=== PATIENT | male | born 1935 | race Caucasian/White ===

== ENCOUNTER 2017-07-14 11:25 | Emergency (ER) | payer OTHER ==
[~2017-07-14] VITALS: Ht 172.7 cm; Wt 77.0 kg
[2017-07-14 11:39] VITALS: Ht 172.7 cm; Wt 77.0 kg
[2017-07-14] MEDS ORDERED: CEFEPIME 2GM/50 ML (PMX) 50 ML IVPB STA (12:03)
[2017-07-14] MEDS ORDERED: VANCOMYCIN 1 GM (PMX) 250 ML IVPB ONE (12:30)
[2017-07-14 12:38] LABS: BASOPHIL # 0.1 10^3/ul (0.0-0.1); BASOPHILS % 0.4 % (0.0-2.0); EOSINOPHILS # 0.1 10^3/ul (0.0-0.5); EOSINOPHILS % 0.5 % (0.0-7.0); HEMATOCRIT 31.7 % (42.0-52.0); HEMOGLOBIN 10.3 g/dl (14.0-18.0); LYMPHOCYTES # 1.3 10^3/ul (0.8-2.9); MEAN CORPUSCULAR HGB CONC 32.5 g/dl (32.0-37.0); MEAN CORPUSCULAR VOLUME 92.4 fl (82.0-101.0); MEAN PLATELET VOLUME 9.2 fl (7.4-10.4); MONOCYTES % 6.1 % (0.0-11.0); NEUTROPHIL # 13.4 10^3/ul (1.6-7.5); NEUTROPHILS % 83.3 % (39.0-77.0); PLATELET COUNT 284 10^3/UL (140-415); RED BLOOD COUNT 3.43 10^6/ul (4.70-6.10); RED CELL DISTRIBUTION WIDTH 13.6 % (11.5-14.5); WHITE BLOOD COUNT 16.2 10^3/ul (4.8-10.8)
[2017-07-14 12:56] LABS: INR 1.09; PARTIAL THROMBOPLASTIN TIME 30.5 Sec (25.0-35.0); PROTIME 14.1 Sec (12.2-14.2); PT RATIO 1.1
[2017-07-14 12:59] LABS: ALBUMIN 3.5 g/dl (3.3-4.9); ALBUMIN/GLOBULIN RATIO 0.89; BILIRUBIN,INDIRECT 0.1 mg/dl (0-1.1); BILIRUBIN,TOTAL 0.1 mg/dl (0.2-1.3); CALCIUM 9.7 mg/dl (8.4-10.2); CREATININE 1.75 mg/dl (0.61-1.24); POTASSIUM 4.3 mmol/L (3.5-5.1); TOTAL PROTEIN 7.4 g/dl (6.1-8.1)
[2017-07-14] MEDS ORDERED: GLIP-95 PO (13:16)
[2017-07-14] MEDS ORDERED: TRAM-40 PO (13:16)
[2017-07-14] MEDS ORDERED: MTF1000T PO (13:17)
[2017-07-14] MEDS ORDERED: AMLO5TAB4 PO (13:18)
--- NOTE | 2017-07-14 13:44 | ERD ---
ER Documentation Chief Complaint Chief Complaint PT BIB RA 89 from [facility] for L foot pain, swelling, and erythema X 1 week. HPI This is an 82-year-old diabetic with a history of r left great toe amputations complaining of right foot infection over the past week. The patient says he has had some redness and swelling over the past week but no fever he says he has minimal pain. Patient says he says some discharge in the foot as well. He was [facility] by [facility] for evaluation and infection ROS All systems reviewed and are negative except as per history of present illness. Medications Home Meds Reported Medications Amlodipine Besylate* (Norvasc*) 5 Mg Tablet, 5 MG PO DAILY, TAB 07/14/17 Metformin* (Glucophage*) 1,000 Mg Tablet, 1000 MG PO BID, #60 TAB 07/14/17 Glipizide* (Glipizide*) 10 Mg Tablet, 10 MG PO BID, TAB 07/14/17 Tramadol Hcl* (Ultram*) 50 Mg Tablet, 50 MG PO Q6H Y for PAIN, TAB 07/14/17 Allergies Allergies: Coded Allergies: No Known Allergy (Unverified , 07/14/17) PMhx/Soc History of Surgery: Yes (L foot toe amputation.) Anesthesia Reaction: No Hx Neurological Disorder: No Hx Respiratory Disorders: No Hx Cardiac Disorders: No Hx Psychiatric Problems: No Hx Miscellaneous Medical Probl: Yes (DM, HTN) Hx Alcohol Use: No Hx Substance Use: No Hx Tobacco Use: No Smoking Status: Never smoker FmHx Family History: No coronary disease Physical Exam Vitals Vital Signs Date Time Temp Pulse Resp B/P Pulse Ox O2 Delivery O2 Flow Rate FiO2 07/14/17 11:39 98.5 102 18 139/68 95 Physical Exam Const: Well-developed, well-nourished Head: Atraumatic, normocephalic Eyes: Normal Conjunctiva, PERRLA, EOMI, normal sclera, no nystagmus ENT: Normal External Ears, Nose and Mouth, moist mucus membranes. Neck: Full range of motion. No meningismus, no lymphadenopathy. Resp: Clear to auscultation bilaterally, no wheezing, rhonchi, rales Cardio: Regular rate and rhythm, no murmurs, S1 S2 present Abd: Soft, non tender x 4, non distended. Normal bowel sounds, no guarding or rebound, no pulsitile abdominal masses or bruits Skin: No petechiae or rashes, no ecchymosis , no maculopapular rash Back: No midline or flank tenderness Ext: No cyanosis, or edema, FROM x 4, normal inspection, neurovascularly intact x 4, left foot has some erythema and swelling to the mid and distal foot on the dorsal plantar surface there is skin breakdown. The second toe is completely gangrenous there is weeping discoloration around it there is some erythema to the toes as well. Neur: Awake and alert, STR 5/5 x 4, sensation intact x 4, no focal findings, cerebellum intact Psych: Normal Mood and Affect Result Diagram: 07/14/17 1200 07/14/17 1200 Results 24 hrs Laboratory Tests Test 07/14/17 12:00 White Blood Count 16.210^3/ul Red Blood Count 3.4310^6/ul Hemoglobin 10.3g/dl Hematocrit 31.7% Mean Corpuscular Volume 92.4fl Mean Corpuscular Hemoglobin 30.0pg Mean Corpuscular Hemoglobin Concent 32.5g/dl Red Cell Distribution Width 13.6% Platelet Count 43672^3/UL Mean Platelet Volume 9.2fl Neutrophils % 83.3% Lymphocytes % 8.0% Monocytes % 6.1% Eosinophils % 0.5% Basophils % 0.4% Nucleated Red Blood Cells % 0.0/100WBC Neutrophils # 13.410^3/ul Lymphocytes # 1.310^3/ul Monocytes # 1.010^3/ul Eosinophils # 0.110^3/ul Basophils # 0.110^3/ul Nucleated Red Blood Cells # 0.010^3/ul Prothrombin Time 14.1Sec Prothrombin Time Ratio 1.1 INR International Normalized Ratio 1.09 Activated Partial Thromboplast Time 30.5Sec Sodium Level 137mmol/L Potassium Level 4.3mmol/L Chloride Level 103mmol/L Carbon Dioxide Level 22mmol/L Anion Gap 16 Blood Urea Nitrogen 27mg/dl Creatinine 1.75mg/dl Glucose Level 426mg/dl Calcium Level 9.7mg/dl Total Bilirubin 0.1mg/dl Direct Bilirubin 0.00mg/dl Indirect Bilirubin 0.1mg/dl Aspartate Amino Transf (AST/SGOT) 14IU/L Alanine Aminotransferase (ALT/SGPT) 23IU/L Alkaline Phosphatase 195IU/L Total Protein 7.4g/dl Albumin 3.5g/dl Globulin 3.90g/dl Albumin/Globulin Ratio 0.89 Current Medications Medications (Trade) Dose Ordered Sig/Akanksha Route PRN Reason Start Time Stop Time Status Last Admin Dose Admin Cefepime HCl 50 ml @ 100 mls/hr ONCE STAT IVPB 07/14/17 12:03 07/14/17 12:32 DC Vancomycin HCl (Vancocin) 250 ml @ 125 mls/hr ONCE ONCE IVPB 07/14/17 12:30 07/14/17 14:29 07/14/17 13:05 Insulin Human Regular (Humulin R) 12 unit ONCE ONCE SC 07/14/17 14:00 07/14/17 14:01 Procedures/MDM Patient received IV cefepime and vancomycin. Patient's blood sugar is elevated The patient will have to get his toe amputated. I will admit for cellulitis of the left foot Patient is a [facility] patient will transfer to their facility PROCEDURE: XR Left Foot. CLINICAL INDICATION: 82-year-old male with suspected osteomyelitis of the left foot. TECHNIQUE: AP and lateral views of the left foot was obtained. The images were reviewed on a PACS workstation. COMPARISON: None. FINDINGS: The bony elements are rarefied. The distal end of the left first metatarsal bone and left first digit have been amputated. Soft tissue swelling is noted adjacent to the distal end of the left first metatarsal bone and involving the left second toe. A plantar spur is noted off of the left os calcaneus. A periostitis is noted along the dorsal aspect of the distal left fibula. IMPRESSION: 1. Status post amputation of the left first digit and distal end of the left first metatarsal bone with adjacent soft tissue swelling at this site and involving the left second digit. Findings are suspicious for a cellulitis. 2. Plantar spur of the left os calcaneus. 3. 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 This finding could be seen with chronic vascular insufficiency or chronic osteomyelitis. 4. No radiographic evidence of osteomyelitis in the area of the left foot. RPTAT:AAJJ Elmer Ortega Physician Date Time Electronically viewed and signed by Elmer Ortega Physician on 07/14/2017 13:55 JM/ CC: TERRY REA DO Departure Diagnosis: Primary Impression: Cellulitis of foot Additional Impression: Gangrene of toe of left foot Condition: Stable TERRY REA DO Jul 14, 2017 13:44
--- NOTE | 2017-07-14 13:55 | RADRPT ---
PROCEDURE: XR Left Foot. CLINICAL INDICATION: 82-year-old male with suspected osteomyelitis of the left foot. TECHNIQUE: AP and lateral views of the left foot was obtained. The images were reviewed on a PACS workstation. COMPARISON: None. FINDINGS: The bony elements are rarefied. The distal end of the left first metatarsal bone and left first digi t have been amputated. Soft tissue swelling is noted adjacent to the distal end of the left first me tatarsal bone and involving the left second toe. A plantar spur is noted off of the left os calcaneu s. A periostitis is noted along the dorsal aspect of the distal left fibula. IMPRESSION: 1. Status post amputation of the left first digit and distal end of the left first metatarsal bone w ith adjacent soft tissue swelling at this site and involving the left second digit. Findings are yudith picious for a cellulitis. 2. Plantar spur of the left os calcaneus. 3. 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 This finding could be seen with chronic vascular insufficiency or chronic osteomyelitis. 4. No radiographic evidence of osteomyelitis in the area of the left foot. RPTAT:AAJJ Physician Kenia Date Time Electronically viewed and signed by Physician Kenia on 07/14/2017 13:55 AURE/
[2017-07-14] MEDS ORDERED: INSULIN REGULAR, HUMAN 100 UNIT/1 ML 3ML VIAL SC ONE (14:00)
[2017-07-14 16:18] VITALS: BP 130/65; PULSE 76; RESP 18; TEMP 98.6
== END 2017-07-14 16:36 | disposition short-term general hospital (02) ==
LOC: EDBD 11:25 → E/R 11:25
DX: L03.116 Cellulitis of left lower limb (principal); E11.9 Type 2 diabetes mellitus without complications; I10 Essential (primary) hypertension; I96 Gangrene, not elsewhere classified; Z79.84 Long term (current) use of oral hypoglycemic drugs
CPT/HCPCS: 36415; 73630; 80053; 82962; 85025; 85610; 85730; 87040; 96365; 96366; 96372; 96375; 99285; J0692; J1815; J3370